=== PATIENT | female | born 1965 | race African-American/Black ===

== ENCOUNTER 2023-10-08 18:46 | Emergency (ER) | payer SELFPAY ==
[~2023-10-08] VITALS: Ht 170.2 cm; Wt 90.3 kg
[~2023-10-08 18:46] MED LIST: IRON; LABE50SY PO; TYLENOL
[2023-10-08 18:55] VITALS: O2SAT 99
[2023-10-08] MEDS ORDERED: BENZ200C52 MT (20:13)
[2023-10-08 20:41] VITALS: BP 166/96; PULSE 75; RESP 18; TEMP 97.3
== END 2023-10-08 20:43 | disposition home or self-care (01) ==
LOC: ER 18:46
DX: R05.9 Cough, unspecified (principal); Z98.890 Other specified postprocedural states
CPT/HCPCS: 71045; 99283

== ENCOUNTER 2024-12-25 04:22 | Inpatient (IN) | payer SELFPAY ==
[~2024-12-25] VITALS: Ht 167.6 cm; Wt 111.3 kg
[2024-12-25] VITALS (10 sets, daily range): BP systolic 108–137; BP diastolic 75–115; PULSE 73–87; RESP 16–24; TEMP 36.3–36.6404; O2SAT 94–97
[~2024-12-25 04:22] MED LIST changes: +BENZ200C52 MT
[2024-12-25] MEDS ORDERED: ALBUTEROL (0.083%) 2.5MG/3ML NEB HHN ONE (05:15)
[2024-12-25] MEDS ORDERED: IPRATROPIUM BROMIDE (0.02%) 0.5MG/2.5ML NEB HHN ONE (05:15)
[2024-12-25 05:17] LABS: BASOPHILS % 2.1 % (0.0-2.0); EOSINOPHILS % 8.1 % (0.0-5.0); HEMATOCRIT. 38.7 % (36.0-48.0); HEMOGLOBIN. 12.9 g/dL (12.0-16.0); LYMPHOCYTES % 55.2 % (20.0-50.0); MEAN PLATELET VOLUME 9.5 fl (7.4-10.4); MONOCYTES % 9.1 % (2.0-8.0); NEUTROPHILS % 25.5 % (40.0-76.0); PLATELET 181 x1000/uL (130-400); RED BLOOD CELL COUNT 4.29 mill/uL (4.2-5.4); RED CELL DISTRIBUTION WIDTH 14.2 % (11.6-14.6)
[2024-12-25] MEDS: PREDNISONE 20MG TABLET PO ONE (05:20)
[2024-12-25 05:27] LABS: CREATININE 1.0 mg/dL (0.6-1.0); TROPONIN I HIGH SENSITIVITY 6 ng/L (3.0-34); UREA NITROGEN BLOOD 13 mg/dL (9-23)
[2024-12-25] MEDS: IPRATROPIUM BROMIDE (0.02%) 0.5MG/2.5ML NEB HHN SCH (05:29)
[2024-12-25] MEDS: ALBUTEROL (0.083%) 2.5MG/3ML NEB HHN SCH (05:29)
[2024-12-25] MEDS ORDERED: METHYLPREDNISOLONE SOD SUCC 125MG/2ML (ACT-O-VIAL) IV ONE (05:30)
[2024-12-25] MEDS: MAGNESIUM 2 G PREMIX 50 ML IV ONE (06:12)
[2024-12-25 07:18] LABS: TROPONIN I HIGH SENSITIVITY 5 ng/L (3.0-34)
[2024-12-25] MEDS ORDERED: CLONIDINE 0.1MG TABLET PO PRN (08:15)
[2024-12-25] MEDS ORDERED: IPRATROPIUM/ALBUTEROL 0.5-3(2.5)MG/3ML NEB NEB PRN (08:15)
[2024-12-25] MEDS ORDERED: METHYLPREDNISOLONE SOD SUCC 125MG/2ML (ACT-O-VIAL) IV SCH (08:15)
[2024-12-25] MEDS ORDERED: ACETAMINOPHEN 325MG TABLET PO PRN (08:15)
[2024-12-25 08:58] LABS: ASPARTATE AMINOTRANSFERASE 17 IU/L (<34)
[2024-12-25 08:59] LABS: BILIRUBIN DIRECT < 0.1 mg/dL (<=3.0); BILIRUBIN TOTAL 0.3 mg/dL (0.1-1.0); PROTEIN TOTAL 6.7 g/dL (6.0-8.3)
[2024-12-25 10:50] LABS: BG BASE EXCESS 0.4 mmol/L (-2.0-3.0); BG CARBOXYHEMOGLOBIN 0.5 % (0.5-1.5); BG DEOXYHEMOGLOBIN 6.6 % (0.0-5.0); BG FRACTION INSPIRED OXYGEN 21; BG HCO3 ACT 26.2 mmol/L (21.0-28.0); BG METHEMOGLOBIN 0.3 % (0.5-1.5); BG OXYGEN SATURATION 93.3 % (94.0-98.0); BG OXYHEMOGLOBIN 92.6 % (94.0-98.0); BG PCO2 46.9 mmHg (32.0-45.0); BG PH 7.365 (7.350-7.450); BG PO2 69.1 mmHg (83.0-108.0); BG SAMPLE SITE RIGHT RADIAL; BG TOTAL HEMOGLOBIN 13.2 g/dL (12.0-16.0); BG VENT MODE ROOM AIR
[2024-12-25] MEDS: METHYLPREDNISOLONE SOD SUCC 40MG/ML (ACT-O-VIAL) IV SCH (10:54)
[2024-12-25] MEDS: ONDANSETRON HCL 4MG/2ML INJ IV PRN (11:07)
[2024-12-25 11:45] LABS: CLARITY URINE CLEAR (CLEAR); COLOR URINE YELLOW (YELLOW); GLUCOSE URINE NEGATIVE (NEGATIVE); KETONES URINE NEGATIVE (NEGATIVE); LEUKOCYTE ESTERASE URINE NEGATIVE (NEGATIVE); NITRITE URINE NEGATIVE (NEGATIVE); OCCULT BLOOD URINE NEGATIVE (NEGATIVE); PH URINE 6.5 (4.5-8.0); PROTEIN URINE NEGATIVE (NEGATIVE); SPECIFIC GRAVITY URINE 1.012 (1.005-1.030); UROBILINOGEN URINE 1.0 E.U./dL (0.2-1.0)
[2024-12-25 12:02] LABS: PHOSPHORUS 2.6 mg/dL (2.5-4.9)
[2024-12-25 12:18] LABS: *AMPHETAMINES SCREEN URINE NEGATIVE (NEGATIVE); *BARBITURATES SCREEN URINE NEGATIVE (NEGATIVE); *BENZODIAZEPINES SCREEN URINE NEGATIVE (NEGATIVE); *COCAINE SCREEN URINE NEGATIVE (NEGATIVE); CANNABINOID URINE SCREEN NEGATIVE (NEGATIVE); ECSTASY MDMA SCREEN URINE NEGATIVE (NEGATIVE); METHADONE URINE SCREEN NEGATIVE (NEGATIVE); OPIATES URINE SCREEN NEGATIVE (NEGATIVE); PHENCYCLIDINE URINE SCREEN NEGATIVE (NEGATIVE)
[2024-12-25] MEDS: LORATADINE 10MG TABLET PO SCH (13:27)
[2024-12-25] MEDS: FAMOTIDINE 20MG TABLET PO SCH (13:28)
[2024-12-25] MEDS ORDERED: DEXTROSE 50% WATER 50ML SYRINGE IV PRN (17:15)
[2024-12-25] MEDS: MONTELUKAST SODIUM 10MG TABLET PO SCH (17:24)
[2024-12-25] MEDS: BLOOD SUGAR DIAGNOSTIC STRIP TEST SCH (17:25)
[2024-12-25] MEDS: INSULIN LISPRO 100 UNITS/ML SUBCUT SCH (17:25)
[2024-12-25 19:13] LABS: TROPONIN I HIGH SENSITIVITY < 4 ng/L (3.0-34)
[2024-12-25] MEDS: IPRATROPIUM/ALBUTEROL 0.5-3(2.5)MG/3ML NEB HHN SCH (20:43)
[2024-12-25] MEDS: ACETAMINOPHEN 325MG TABLET PO PRN (21:58)
[2024-12-26] VITALS (10 sets, daily range): BP systolic 111–142; BP diastolic 63–94; PULSE 65–88; RESP 6–20; TEMP 36.4–36.9; O2SAT 95–97
[2024-12-26 00:24] LABS: TROPONIN I HIGH SENSITIVITY < 4 ng/L (3.0-34)
[2024-12-26] MEDS: GUAIFENESIN 200MG/10ML SUGAR FREE UDC PO PRN (05:19)
[2024-12-26 06:23] LABS: BASOPHILS % 0.1 % (0.0-2.0); EOSINOPHILS % 0.1 % (0.0-5.0); HEMATOCRIT. 39.0 % (36.0-48.0); HEMOGLOBIN. 13.1 g/dL (12.0-16.0); LYMPHOCYTES % 13.4 % (20.0-50.0); MEAN PLATELET VOLUME 9.7 fl (7.4-10.4); MONOCYTES % 4.3 % (2.0-8.0); NEUTROPHILS % 82.1 % (40.0-76.0); PLATELET 185 x1000/uL (130-400); RED BLOOD CELL COUNT 4.31 mill/uL (4.2-5.4); RED CELL DISTRIBUTION WIDTH 14.1 % (11.6-14.6)
[2024-12-26 06:25] LABS: CREATININE 0.7 mg/dL (0.6-1.0); UREA NITROGEN BLOOD 12 mg/dL (9-23)
[2024-12-26 06:29] LABS: T4 FREE 0.93 ng/dL (0.89-1.76)
[2024-12-26 08:49] LABS: ASPARTATE AMINOTRANSFERASE 15 IU/L (<34); BILIRUBIN DIRECT < 0.1 mg/dL (<=3.0); BILIRUBIN TOTAL 0.3 mg/dL (0.1-1.0); PROTEIN TOTAL 7.1 g/dL (6.0-8.3)
[2024-12-26] MEDS: ZINC SULFATE 220 MG ( 50 ) CAPSULE PO SCH (09:28)
[2024-12-26] MEDS: ASCORBIC ACID 250 MG TABLET PO SCH (09:29)
[2024-12-26] MEDS ORDERED: DEXTL PO (11:56)
[2024-12-26] MEDS ORDERED: CLAR10 PO (11:56)
[2024-12-26] MEDS ORDERED: BUDE10.27 INH (11:56)
[2024-12-26] MEDS ORDERED: MONT-46 PO (11:56)
[2024-12-26] MEDS ORDERED: FAMO20TA8 PO (11:56)
[2024-12-26] MEDS ORDERED: ALBU5SOL18 IH (13:08)
== END 2024-12-26 14:52 | disposition home or self-care (01) | DRG 141 ==
LOC: ER 04:22 → EDBEDREQ 06:25 → EDBEDREQTM 06:25 → ENRESERV 08:24 → 5EST 08:54
PROVIDERS: ADMIT Internal Medicine; ATTEND Internal Medicine
PROC: 5A09357 Assistance with Respiratory Ventilation, Less than 24 Consecutive Hours, Continuous Positive Airway Pressure (ICD-10-PCS; principal; 2024-12-25)
PROC: 5A09357 Assistance with Respiratory Ventilation, Less than 24 Consecutive Hours, Continuous Positive Airway Pressure (ICD-10-PCS; 2024-12-26)
DX: J45.901 Unspecified asthma with (acute) exacerbation (principal); D72.10 Eosinophilia, unspecified; R73.9 Hyperglycemia, unspecified; E66.9 Obesity, unspecified; Z20.822 Contact with and (suspected) exposure to COVID-19; K21.9 Gastro-esophageal reflux disease without esophagitis; J32.9 Chronic sinusitis, unspecified; Z88.0 Allergy status to penicillin; Z68.39 Body mass index [BMI] 39.0-39.9, adult
CPT/HCPCS: 36415; 36600; 71045; 80048; 80076; 80305; 81003; 82375; 82550; 82805; 82962; 83036; 83605; 83735; 84100; 84145; 84439; 84443; 84484; 85025; 85379; 87426; 93005; 93970; 94070; 94640; 94660; 96365; 96366; 98960; 99291; A4606; J2405; J2919; J3475; J7512

== ENCOUNTER 2025-02-20 08:36 | Emergency (ER) | payer SELFPAY ==
[~2025-02-20] VITALS: Ht 167.6 cm; Wt 90.0 kg
[~2025-02-20 08:36] MED LIST changes: +ALBU5SOL18 IH; +BUDE10.27 INH; +CLAR10 PO; +DEXTL PO; +FAMO20TA8 PO; -LABE50SY PO; +MONT-46 PO
[2025-02-20] MEDS: IPRATROPIUM BROMIDE (0.02%) 0.5MG/2.5ML NEB HHN ONE (09:22)
[2025-02-20] MEDS: ALBUTEROL (0.083%) 2.5MG/3ML NEB HHN ONE (09:22)
[2025-02-20 09:23] VITALS: PULSE 74; RESP 20; O2SAT 99
[2025-02-20] MEDS: PREDNISONE 20MG TABLET PO ONE (09:42)
[2025-02-20 10:01] LABS: BASOPHILS % 1.9 % (0.0-2.0); EOSINOPHILS % 8.0 % (0.0-5.0); HEMATOCRIT. 46.3 % (36.0-48.0); HEMOGLOBIN. 14.6 g/dL (12.0-16.0); LYMPHOCYTES % 55.8 % (20.0-50.0); MEAN PLATELET VOLUME 9.7 fl (7.4-10.4); MONOCYTES % 9.1 % (2.0-8.0); NEUTROPHILS % 25.2 % (40.0-76.0); PLATELET 164 x1000/uL (130-400); RED BLOOD CELL COUNT 4.75 mill/uL (4.2-5.4); RED CELL DISTRIBUTION WIDTH 14.6 % (11.6-14.6)
[2025-02-20 10:24] LABS: CREATININE 0.8 mg/dL (0.6-1.0)
[2025-02-20 10:25] LABS: TROPONIN I HIGH SENSITIVITY 6 ng/L (3.0-34); TROPONIN I HIGH SENSITIVITY 7 ng/L (3.0-34); UREA NITROGEN BLOOD 8 mg/dL (9-23)
[2025-02-20 10:26] LABS: ASPARTATE AMINOTRANSFERASE 20 IU/L (<34)
[2025-02-20 10:27] LABS: BILIRUBIN DIRECT 0.1 mg/dL (<=3.0); BILIRUBIN TOTAL 0.5 mg/dL (0.1-1.0); PROTEIN TOTAL 7.9 g/dL (6.0-8.3)
[2025-02-20] MEDS ORDERED: AZIT250T12 MT (10:37)
[2025-02-20] MEDS ORDERED: ALBU18HF2 IH (10:37)
[2025-02-20] MEDS ORDERED: METH4TAB95 MT (10:37)
[2025-02-20] MEDS ORDERED: ALBU2.5V13 NEB (10:37)
[2025-02-20 10:57] VITALS: BP 150/90; PULSE 86; RESP 20; TEMP 37; O2SAT 97
== END 2025-02-20 11:00 | disposition home or self-care (01) ==
LOC: ER 08:36 → CANBEDREQ 10:17 → ER 11:00
DX: J20.9 Acute bronchitis, unspecified (principal); R50.9 Fever, unspecified; J45.901 Unspecified asthma with (acute) exacerbation; M19.90 Unspecified osteoarthritis, unspecified site; Z88.0 Allergy status to penicillin
CPT/HCPCS: 80076; 80048; 83880; 85025; 84484; 36415; 71045; 94640; 93005; 99285; J7512; Z7610 ×3; 94664

== ENCOUNTER 2025-04-09 14:08 | Emergency (ER) | payer SELFPAY ==
[~2025-04-09] VITALS: Ht 170.2 cm; Wt 91.0 kg
[~2025-04-09 14:08] MED LIST changes: +ALBU18HF2 IH; +ALBU2.5V13 NEB; +AZIT250T12 MT; +METH4TAB95 MT
[2025-04-09 16:09] VITALS: PULSE 70; RESP 17; O2SAT 94
[2025-04-09] MEDS: IPRATROPIUM BROMIDE (0.02%) 0.5MG/2.5ML NEB HHN SCH (16:09)
[2025-04-09] MEDS: ALBUTEROL (0.083%) 2.5MG/3ML NEB HHN SCH (16:09)
[2025-04-09] MEDS: DEXAMETHASONE 4MG TABLET PO ONE (16:13)
[2025-04-09] MEDS: IBUPROFEN 600MG TABLET PO ONE (16:14)
[2025-04-09] MEDS ORDERED: METH4TAB95 MT (17:27)
[2025-04-09] MEDS ORDERED: IBUP1TAB11 MT (17:27)
[2025-04-09] MEDS ORDERED: ALBU18HF2 IH (17:27)
[2025-04-09] MEDS ORDERED: BUDE10.27 INH (17:27)
[2025-04-09] MEDS ORDERED: BENZ200C52 MT (17:27)
[2025-04-09 17:41] VITALS: BP 154/69; PULSE 72; RESP 18; TEMP 36.9; O2SAT 96
== END 2025-04-09 17:43 | disposition home or self-care (01) ==
LOC: ER 14:08
DX: J06.9 Acute upper respiratory infection, unspecified (principal); B97.89 Other viral agents as the cause of diseases classified elsewhere; J45.901 Unspecified asthma with (acute) exacerbation; Z88.0 Allergy status to penicillin; Z79.899 Other long term (current) drug therapy; Z98.890 Other specified postprocedural states
CPT/HCPCS: 71045; 93005; 94644; 99285; J8540; Z7610 ×3; 94640; 94664; A4606